=== PATIENT | female | born 1950 | race African-American/Black ===

== ENCOUNTER 2017-06-26 15:09 | Emergency (ER) | payer OTHER ==
[2017-06-26 15:24] VITALS: BP 125/81; PULSE 74; TEMP 98; BMI 26.4
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
== END 2017-06-26 18:08 | disposition home or self-care (01) ==
LOC: JERFT 15:09
DX: S39.012A Strain of muscle, fascia and tendon of lower back, initial encounter (principal); S16.1XXA Strain of muscle, fascia and tendon at neck level, initial encounter; V49.59XA Passenger injured in collision with other motor vehicles in traffic accident, initial encounter; Y92.488 Other paved roadways as the place of occurrence of the external cause; Y93.89 Activity, other specified; Y99.8 Other external cause status
CPT/HCPCS: 70450-TC; 72125-TC; 72131-TC; 99281-25

== ENCOUNTER 2023-05-27 12:53 | Emergency (ER) | payer OTHER ==
[2023-05-27 13:03] VITALS: BP 136/72; RESP 16; TEMP 97.4; BMI 26.5
[2023-05-27 13:32] VITALS: PULSE 80
== END 2023-05-27 14:26 | disposition home or self-care (01) ==
LOC: JERFT 12:53
DX: R05.1 Acute cough (principal); J34.89 Other specified disorders of nose and nasal sinuses
CPT/HCPCS: 71046-TC-FY; 99283-25